=== PATIENT | female | born 1990 | race Asian ===

== ENCOUNTER 2017-01-09 22:52 | Emergency (ER) | payer OTHER ==
[~2017-01-09] VITALS: Ht 162.6 cm; Wt 85.0 kg
[~2017-01-09 22:52] MED LIST: FERR-31; PREN1TAB49
[2017-01-09 22:58] VITALS: Ht 162.6 cm; Wt 85.0 kg
[2017-01-10] MEDS ORDERED: ONDANSETRON (ODT) 4 MG TAB ODT STA (00:08)
[2017-01-10] MEDS ORDERED: IBUP-1542 PO (00:44)
[2017-01-10] MEDS ORDERED: DICY10CA60 PO (00:44)
[2017-01-10] MEDS ORDERED: ONDA4TAB14 PO (00:44)
[2017-01-10 00:54] VITALS: BP 124/70; PULSE 82; RESP 20; TEMP 98
--- NOTE | 2017-01-10 01:06 | ERD ---
ER Documentation Chief Complaint Date/Time DATE: 01/10/17 TIME: 01:03 Chief Complaint vomited 3x since 3 hours ago, sick contact- baby w/ diarrhea/ vomiting HPI 26 year-old female presents to emergency department for complaints of vomiting episode started tonight. Patient vomited 3 times. Patient's KIDS are sick with the same symptoms. Patient does not have any blood in the vomit. Patient does not have any blood in the stool or black stool. Patient does not have any diarrhea or constipation. Patient denies any fever or chills. Patient denies any abdominal pain. ROS All systems reviewed and are negative except as per history of present illness. Medications Home Meds Active Scripts Ibuprofen* (Motrin*) 600 Mg Tab, 600 MG PO Q6H Y for PAIN AND OR ELEVATED TEMP, #30 TAB Prov:HEMANTH AGUILA [employer] 01/10/17 Dicyclomine Hcl* (Bentyl*) 10 Mg Capsule, 20 MG PO QID, #20 CAP Prov:HEMANTH AGUILA NP 01/10/17 Ondansetron (Ondansetron Odt) 4 Mg Tab.rapdis, 4 MG PO Q8 Y for NAUSEA AND/OR VOMITING, #30 TAB Prov:HEMANTH AGUILA [employer] 01/10/17 Reported Medications Vits W-Ca,Fe,Fa(<1MG) () 1 Tab Tablet 02/17/11 Ferrous Sulfate (Iron Supplement) 1 Tab Tablet 02/17/11 Allergies Allergies: Coded Allergies: No Known Allergies (Verified Allergy, Mild, 04/12/14) PMhx/Soc Medical and Surgical Hx: pt denies Medical Hx History of Surgery: Yes (gallbladder) Anesthesia Reaction: No Hx Alcohol Use: No Hx Substance Use: No Hx Tobacco Use: No Smoking Status: Never smoker FmHx Family History: No coronary disease, No diabetes, No other Physical Exam Vitals Vital Signs Date Time Temp Pulse Resp B/P Pulse Ox O2 Delivery O2 Flow Rate FiO2 01/10/17 00:54 98.0 82 20 124/70 99 Room Air 01/09/17 22:58 98.5 91 20 131/59 99 Physical Exam GENERAL: The patient is well developed and appropriate for usual state of health, in no apparent distress. CHEST: Clear to auscultation bilaterally. There are no rales, wheezes or rhonchi. HEART: Regular rate and rhythm. No murmurs, clicks, rubs or gallops. No S3 or S4. ABDOMEN: Soft, nontender and nondistended. Good bowel sounds. No rebound or guarding. No gross peritonitis. No gross organomegaly or masses. No Lemon sign or McBurney point tenderness. BACK: No midline or flank tenderness. EXTREMITIES: Equal pulses bilaterally. There is no peripheral clubbing, cyanosis or edema. No focal swelling or erythema. Full range of motion. Grossly neurovascularly intact. NEURO: Alert and oriented. Cranial nerves 2-12 intact. Motor strength in all 4 extremities with 5/5 strength. Sensation grossly intact. Normal speech and gait. SKIN: There is no apparent rash or petechia. The skin is warm and dry. HEMATOLOGIC AND LYMPHATIC: There is no evidence of excessive bruising or lymphedema. No gross cervical, axillary, or inguinal lymphadenopathy. Results 24 hrs Current Medications Medications (Trade) Dose Ordered Sig/Chuy Route PRN Reason Start Time Stop Time Status Last Admin Dose Admin Ondansetron HCl (Zofran Odt) 4 mg ONCE STAT ODT 01/10/17 00:08 01/10/17 00:10 DC 01/10/17 00:42 Patient was given Zofran here in the emergency department. After treatment, patient was able to tolerate po fluids here in the emergency department without any vomiting. There is no signs and symptoms of dehydration. Procedures/MDM Medical Decision Making: Patient's symptoms of vomiting most likely consistent with viral illness. Patient's family members are sick with the same symptoms. Patient does not complain of abdominal pain. Able to tolerate oral fluids without any vomiting. There is low suspicion for abdominal emergencies at this time. Patients abdominal exam is normal at this time. Radiology exams or laboratory testing not indicated at this time. There is low suspicion for appendicitis, cholecystitis, abdominal aortic aneurysms or peritonitis at this time. There is low suspicion for sepsis. Patient appears well and is hemodynamically stable. Disposition: Home. Condition: Stable Prescription Zofran, Bentyl, ibuprofen Instructions: Patient is advised to take medications as prescribed. Patient is advised to rest, increase fluid intake and do brat diet for next 1-2 days and progress as tolerated. Patient is advised that if symptoms are worse, severe abdominal pain, uncontrolled vomiting, high fever, severe flank pain, worst signs and symptoms, to return to the emergency department immediately. Otherwise, patient can follow up with primary care doctor in 5-7 days. Departure Diagnosis: Primary Impression: Vomiting Vomiting type: unspecified Vomiting Intractability: unspecified Nausea presence: unspecified Qualified Code: R11.10 - Vomiting, intractability of vomiting not specified, presence of nausea not specified, unspecified vomiting type Condition: Stable Patient Instructions: Vomiting (6Y-Adult) HEMANTH AGUILA NP Jan 10, 2017 01:06
== END 2017-01-10 00:54 | disposition home or self-care (01) ==
LOC: FTE 22:52
DX: R11.10 Vomiting, unspecified (principal)
CPT/HCPCS: 99284